=== PATIENT | male | born 2000 | race Two or more races ===

== ENCOUNTER 2022-05-26 15:36 | Day surgery (SDC) | payer BC, SELFPAY ==
[2022-05-26] MEDS ORDERED: Midazolam HCl 2 mg/2 ml Vial ONE (15:40)
[2022-05-26] MEDS ORDERED: Famotidine/PF 20 mg/2ml Vial ONE (15:40)
[2022-05-26] MEDS ORDERED: Meperidine HCl/PF 25 MG/ML VIAL ONE ×2 (15:40→17:30)
[2022-05-26] MEDS ORDERED: fentaNYL PF 100 MCG/2 ML SYRINGE ONE (15:40)
[2022-05-26] MEDS ORDERED: cefOXitin 2 GM VIAL ONE (16:17)
[2022-05-26] MEDS ORDERED: Sodium Chloride 0.9% 100 ML ONE (16:17)
[2022-05-26] MEDS ORDERED: Succinylcholine 200 MG/10 ml SYRINGE FS ONE (16:20)
[2022-05-26] MEDS ORDERED: PROPOFOL 200 MG/20 ML VIAL ONE (16:20)
[2022-05-26] MEDS ORDERED: Lidocaine 1% PF 5 ML VIAL ONE (16:20)
[2022-05-26] MEDS ORDERED: Rocuronium Bromide 10 MG/ML (10ML VIAL) ONE (16:20)
[2022-05-26] MEDS ORDERED: Metoclopramide HCl 10 MG/2 ML VIAL ONE (16:20)
[2022-05-26] MEDS ORDERED: GLYCOPYRROLATE/PF 0.2 MG/ML VIAL ONE (16:20)
[2022-05-26] MEDS ORDERED: NEOSTIGMINE 3 MG/3 ML SYR 3 MG/3 ML SYRINGE ONE (16:20)
[2022-05-26] MEDS ORDERED: Dexamethasone 20 MG/5 ML VIAL ONE (16:20)
[2022-05-26] MEDS ORDERED: Ondansetron PF 4 MG/2 ML Vial ONE (16:20)
[2022-05-26] MEDS ORDERED: Bupivacaine/Epinephrine 0.25% 30 ML VIAL ONE (16:37)
== END 2022-05-26 18:45 | disposition home or self-care (01) ==
LOC: SDC 15:36
PROVIDERS: ATTEND Surgery
PROC: 0DTJ4ZZ Resection of Appendix, Percutaneous Endoscopic Approach (ICD-10-PCS; principal; 2022-05-26)
DX: K35.30 Acute appendicitis with localized peritonitis, without perforation or gangrene (principal)
CPT/HCPCS: 88304; A4649; C1776; J0694; J1100; J2175; J2250; J2405; J2704; J2765; J3490; S0028

== ENCOUNTER 2022-05-31 11:31 | Observation (INO) | payer BC ==
[2022-05-31 12:13] VITALS: BMI 24.4
[2022-05-31 12:38] LABS: #Eosinphils 0.1 thou/uL (0.0-0.7); #Lymphocytes 1.9 thou/uL (1.20-3.40); #Monocytes 0.8 thou/uL (0.11-0.59); #Neutrophils 4.9 thou/uL (1.40-6.50); %Basophils 0.4 % (0.0-1.0); %Eosinophils 1.6 % (0.0-10.0); %Lymphocytes 24.2 % (21.0-51.0); %Monocytes 10.7 % (0.0-10.0); Hemoglobin 7.7 g/dL (14.0-18.0); Mean Corpuscular HGB CONC 36.2 g/dL (32.0-36.0); Mean Corpuscular Hemoglobin 34.6 pg (27.0-31.0); Mean Corpuscular Volume 95.6 fl (78.0-98.0); Mean Platelet Volume 6.3 fL (7.4-10.4); Platelet Count 292 10x3/uL (130-400); RBC Distribution Width 11.8 % (11.5-14.5); Red Blood Cell (RBC) Count 2.23 mill/uL (4.70-6.10); White Blood Cell (WBC) Count 7.8 10x3/uL (4.8-10.8)
[2022-05-31] MEDS ORDERED: Dextrose 50% Abboject 50 ML SYRINGE SLOW IVP PRN (12:47)
[2022-05-31] MEDS ORDERED: Dextrose 5% in Water 1,000 ML IV PRN (12:47)
[2022-05-31] MEDS ORDERED: Promethazine HCl 25 MG/ML VIAL IM PRN (12:47)
[2022-05-31] MEDS ORDERED: hydrALAZINE 20 MG/ML VIAL SLOW IVP PRN (12:47)
[2022-05-31] MEDS ORDERED: Acetaminophen 325 MG TAB PO PRN (12:47)
[2022-05-31] MEDS ORDERED: Ipratropium/Albuterol 3 ML NEB NEB PRN (12:47)
[2022-05-31] MEDS ORDERED: Ondansetron PF 4 MG/2 ML Vial IVP PRN (12:47)
[2022-05-31 12:57] LABS: ALT (SGPT) 15 U/L (8-55); AST (SGOT) 23 U/L (5-34); Albumin 4.1 g/dL (3.5-5.0); Alkaline Phosphatase 42 U/L (40-110); Anion Gap 12 mmol/L (10-20); BUN (Urea Nitrogen) 12 mg/dL (8.9-20.6); Bilirubin, Total 1.7 mg/dL (0.2-1.2); Calc. Creatinine Clearance 117 mL/min (70-130); Calcium 9.4 mg/dL (7.8-10.44); Carbon Dioxide 26 mmol/L (22-29); Chloride 103 mmol/L (98-107); Estimated GFR 97; Globulin 2.8 g/dL (2.4-3.5); Glucose 93 mg/dL (70-105); Protein, Total 6.9 g/dL (6.0-8.3); Sodium 137 mmol/L (136-145)
[2022-05-31] MEDS: Morphine 4 MG/ML VIAL SLOW IVP PRN ×2 (13:23→18:33)
[2022-05-31] MEDS: D5 1/2 NS w/20 mEq KCL 1,000 ML IV SCH (13:33)
[2022-05-31] MEDS: HYDROcodone/Acetaminophen 7.5/325 mg Tablet PO PRN (15:23)
[2022-05-31] MEDS: Famotidine/PF 20 mg/2ml Vial SLOW IVP SCH (20:30)
[2022-05-31] MEDS: Famotidine 20 MG TAB PO SCH (20:36)
[2022-06-01] MEDS: D5 1/2 NS w/20 mEq KCL 1,000 ML IV SCH ×2 (00:15→08:19)
[2022-06-01] MEDS: HYDROcodone/Acetaminophen 7.5/325 mg Tablet PO PRN ×2 (03:14→08:18)
[2022-06-01 04:46] VITALS: TEMP 98.2
[2022-06-01 05:42] LABS: #Eosinphils 0.2 thou/uL (0.0-0.7); #Lymphocytes 1.8 thou/uL (1.20-3.40); #Neutrophils 4.9 thou/uL (1.40-6.50); %Basophils 0.4 % (0.0-1.0); %Eosinophils 2.7 % (0.0-10.0); %Lymphocytes 22.5 % (21.0-51.0); %Monocytes 12.4 % (0.0-10.0); Hemoglobin 7.2 g/dL (14.0-18.0); Mean Corpuscular HGB CONC 34.9 g/dL (32.0-36.0); Mean Corpuscular Hemoglobin 33.9 pg (27.0-31.0); Mean Corpuscular Volume 97.2 fl (78.0-98.0); Mean Platelet Volume 6.2 fL (7.4-10.4); Platelet Count 293 10x3/uL (130-400); RBC Distribution Width 12.6 % (11.5-14.5); Red Blood Cell (RBC) Count 2.12 mill/uL (4.70-6.10); White Blood Cell (WBC) Count 7.8 10x3/uL (4.8-10.8)
[2022-06-01] MEDS: Famotidine/PF 20 mg/2ml Vial SLOW IVP SCH (08:18)
[2022-06-01] MEDS: Famotidine 20 MG TAB PO SCH (10:25)
[2022-06-01 11:38] VITALS: BP 120/65
== END 2022-06-01 12:45 | disposition home or self-care (01) ==
LOC: INTOOBSV 11:31 → SURG A 11:31
PROVIDERS: ADMIT Surgery; ATTEND Surgery
DX: M96.841 Postprocedural hematoma of a musculoskeletal structure following other procedure (principal); Z79.2 Long term (current) use of antibiotics
CPT/HCPCS: 36415; 80053; 85025; 96372; 96374; 96375; 96376; G0378; G0379; J2270; J2405; J2550; J3480; S0028